=== PATIENT | female | born 1970 | race Caucasian/White ===

== ENCOUNTER 2020-05-29 13:08 | Outpatient (CLI) | payer OTHER, SELFPAY ==
--- NOTE | 2020-05-29 13:15 | XRR_ITS ---
PROCEDURE INFORMATION: Exam: XR Right Hip Exam date and time: 05/29/2020 1:24 PM Age: 49 years old Clinical indication: Hip pain; Right hip; Additional info: R hip pain TECHNIQUE: Imaging protocol: XR Right hip. Views: 1 view hip with pelvis when performed. COMPARISON: No relevant prior studies available. FINDINGS: Bones/joints: Unremarkable. No acute fracture. Normal contour of the femoral head. Soft tissues: Unremarkable. XR/XR hip RT 2-3V wo/w pel* [id number] IMPRESSION: No acute findings.
--- NOTE | 2020-05-29 13:15 | XRR_ITS ---
PROCEDURE INFORMATION: Exam: XR Lumbosacral Spine Exam date and time: 05/29/2020 1:24 PM Age: 49 years old Clinical indication: Low back pain TECHNIQUE: Imaging protocol: XR of the lumbosacral spine. Views: 2 or 3 views. COMPARISON: No relevant prior studies available. FINDINGS: Bones/joints: Normal. No acute fracture. Normal alignment. Soft tissues: Unremarkable. XR/XR lumbar spine 2-3V* [id number] IMPRESSION: No acute findings.
== END 2020-05-29 13:09 | disposition home or self-care (01) ==
PROVIDERS: PCP Nurse Practitioner Family; Visit Provider Nurse Practitioner Family
DX: M54.5 Low back pain (principal); M25.551 Pain in right hip
CPT/HCPCS: 72100; 73502

== ENCOUNTER 2022-04-28 14:53 | Outpatient (CLI) | payer OTHER, SELFPAY ==
--- NOTE | 2022-04-28 | XR_ITS ---
WS: [id number] Exam: XR thoracolumbar junct [id number] Date/Time of Exam: 04/28/2022 3:13 PM Reason For Exam: LUMBAR PAIN Comparison 05/29/2020. No fracture or dislocation noted. Disc spaces are preserved. Slight dextroscoliosis of may be positio nal. Unremarkable paraspinal soft tissue structures. XR/XR thoracolumbar junct [id number] IMPRESSION: 1. No fracture or malalignment. 2. Slight dextroscoliosis of may be positional.
== END 2022-04-28 14:54 | disposition home or self-care (01) ==
LOC: RAD 14:58
PROVIDERS: PCP Nurse Practitioner Family; Visit Provider Nurse Practitioner Family
DX: M54.50 Low back pain, unspecified (principal); M41.85 Other forms of scoliosis, thoracolumbar region
CPT/HCPCS: 72080

== ENCOUNTER 2023-01-23 08:44 | Outpatient (CLI) | payer OTHER, SELFPAY ==
--- NOTE | 2023-01-23 08:52 | XR_ITS ---
WS: [id number] Exam: XR cervical spine 3V* [id number] Date/Time of Exam: 01/23/2023 9:08 AM Reason For Exam: NECK PAIN There is straightening and slight reversal of the normal cervical lordosis. Slight narrowing of the C 5-6 and C6-C7 intervertebral discs with mild spondylosis. Facet DJD at all levels. Normal paraspinal soft tissue structures. The odontoid is intact. IMPRESSION: 1. No fracture or malalignment. 2. Straightening, degenerative changes.
--- NOTE | 2023-01-23 08:52 | US_ITS ---
WS: [id number] THYROID ULTRASOUND HISTORY: NODULE OF NECK COMPARISON: None available. Right lobe: 1.3 cm x 1.1 cm x 5.2 cm (w x ap x l). Volume: 3.9 cm3. Normal size and echotexture. No significant are dominant nodules are present. Left lobe: 1.1 cm x 1.2 cm x 4.2 cm (w x ap x l). Volume: 2.9 cm3. Normal size and echotexture. No significant or dominant nodules are present. Palpable area along the LEFT neck corresponds to a benign superficial lymph node measuring 6 mm. Isthmus: 0.3 cm. IMPRESSION: Normal thyroid ultrasound.
== END 2023-01-23 08:45 | disposition home or self-care (01) ==
LOC: RAD 08:45
PROVIDERS: PCP Nurse Practitioner Family; Visit Provider Nurse Practitioner Family
DX: R22.1 Localized swelling, mass and lump, neck (principal); M54.2 Cervicalgia; M47.812 Spondylosis without myelopathy or radiculopathy, cervical region
CPT/HCPCS: 72040; 76536